=== PATIENT | male | born 1985 ===

== ENCOUNTER → 2017-06-07 | Emergency (ER) | payer OTHER ==
[~2017-06-07] VITALS: Ht 180.3 cm; Wt 77.6 kg
== END | disposition home or self-care (01) ==
LOC: ER 01:39
DX: J03.90 Acute tonsillitis, unspecified (principal)

== ENCOUNTER 2021-04-23 10:37 | Outpatient (CLI) | payer OTHER | END 2021-04-23 10:43 | disposition home or self-care (01) | LOC: LAB 10:37 | DX: U07.1 COVID-19 (principal); Z11.59 Encounter for screening for other viral diseases; R05.8 Other specified cough; R06.02 Shortness of breath ==